=== PATIENT | male | born 1970 | race Caucasian/White ===

== ENCOUNTER → 2020-06-29 14:00 | Outpatient (BNVA) | payer BC, SELFPAY | PROVIDERS: Family Provider Family Medicine; PCP Nurse Practitioner Family; Visit Provider Family Medicine | DX: M79.641 Pain in right hand (principal); M79.642 Pain in left hand | CPT/HCPCS: 84550 ==

== ENCOUNTER → 2023-02-02 14:10 | Outpatient (BNVA) | payer BC, SELFPAY | PROVIDERS: PCP Nurse Practitioner Family; Visit Provider Nurse Practitioner Family | DX: M79.672 Pain in left foot (principal); M77.8 Other enthesopathies, not elsewhere classified | CPT/HCPCS: 73630 ==

== ENCOUNTER 2024-03-20 17:03 | Emergency (ER) | payer BC, SELFPAY ==
[2024-03-20 17:40] VITALS: BP 142/77; PULSE 67; RESP 18; TEMP 36.8; O2SAT 100; BMI 38.0
--- NOTE | 2024-03-20 17:55 | ED_ITS ---
HPI - Animal Bite General: Chief Complaint: Animal Bite Stated Complaint: Bit by a raccoon on rt hand Time Seen by Provider: 03/20/24 17:47 History of Present Illness: 53-year-old male patient comes in today with a animal bite to the right forearm. Patient has 2 puncture wounds from a raccoon. Patient appears nontoxic. Patient is concerned for rabies. Animal was a wild animal. Related Data Previous Rx's Medication Instructions Recorded ibuprofen 800 mg tablet 800 mg PO Q8H PRN pain #30 tabs 02/02/23 azithromycin 250 mg tablet See Rx Instructions PO .COMPLEX #6 01/11/24 (Zithromax Z-Ruben) tabs cefdinir 300 mg capsule 300 mg PO BID #14 caps 01/11/24 prednisone 20 mg tablet 40 mg (2 x 20 mg) PO DAILY 5 days 01/11/24 #10 tabs amoxicillin 875 mg-potassium 1 tab PO BID #14 tabs 03/20/24 clavulanate 125 mg tablet Allergies Allergy/AdvReac Type Severity Reaction Status Date / Time No Known Allergies Allergy Verified 03/20/24 17:40 Review of Systems General: Reports: 10 or more systems reviewed and unremarkable except in HPI and below Skin/Breast: Reports: other (Puncture arm) [facility] ED PFSH: Social History Smoking and tobacco/nicotine status: never used tobacco/nicotine Alcohol intake: never Substance/Drug Use: never Physical Exam Const: COMMON NORMALS: alert HENMT: COMMON NORMALS: normocephalic HEAD & SCALP: normocephalic Neck/C-Spine: COMMON NORMALS: full ROM Resp: COMMON NORMALS: normal respiratory effort and clear to auscultation bilaterally AUSCULTATION: clear to auscultation bilaterally Cardio: COMMON NORMALS: regular rhythm RHYTHM: regular rhythm Back/Pelvis: COMMON NORMALS: thoracic and lumbar spine normal to inspection Extremity: COMMON NORMALS: full ROM Neuro: SENSORIUM/ORIENTATION: Yes alert Skin: OTHER: Due to point puncture wounds to the right forearm. No significant redness or swelling noted. Course Vital Signs: Vital signs: Vital Signs Temperature 98.3 F 03/20/24 17:40 Pulse Rate 67 03/20/24 17:40 Respiratory Rate 18 03/20/24 17:40 Blood Pressure 142/77 03/20/24 17:40 Pulse Oximetry 100 03/20/24 17:40 MDM - Animal Bite Medical Decision Making 53-year-old male patient comes in today for complaints of raccoon animal bite to the right forearm. On exam patient has 2 puncture wounds and some abrasions noted to the right forearm. Differential diagnosis includes but not limited to need for prophylaxis tetanus, need for prophylaxis postexposure rabies exposure, need for prophylaxis antibiotics, animal bite, foreign body. No signs of foreign body or severe injury was noted. Reviewed exam with patient with recommendation for treatment and follow-up. Patient reported understanding agreed to plan. No radiology studies performed this visit Discharge Plan Discharge Patient Disposition: Home Clinical Impression: Animal bite of forearm Qualifiers: Encounter type: initial encounter Laterality: right Qualified Code(s): S51.851A - Open bite of right forearm, initial encounter Condition: Stable Prescriptions: New amoxicillin-pot clavulanate 875-125 mg tablet 1 tab PO BID Qty: 14 0RF No Action ibuprofen 800 mg tablet 800 mg PO Q8H PRN (Reason: pain) Qty: 30 0RF cefdinir 300 mg capsule 300 mg PO BID Qty: 14 0RF azithromycin [Zithromax Z-Ruben] 250 mg tablet See Rx Instructions PO .COMPLEX Qty: 6 0RF Rx Instructions: take 500 mg today (day 1), then 250 mg for 4 days (days 2-5) PO prednisone 20 mg tablet 40 mg PO DAILY 5 Days Qty: 10 0RF Discharge Orders: Discharge ED (Routine); Ordered 03/20/24 Ordered By: Jonn Garrison Referrals: Joy Green NP [Primary Care Provider] - Discharge Diet: Usual diet Discharge Activity: Increase activity as tolerated Patient Instructions: Animal Bite (ED) Activity Restrictions/Additional Instructions: Take antibiotic as directed. You will need to return on days 3, 7, and 14 to complete the rabies vaccine postexposure series. Drink plenty of water and medications with antibiotics. Follow-up with primary care in 2 to 3 days for recheck. Return to ED for increasing redness and swelling of the extremity, high fever, or new concerns. 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
[2024-03-20] MEDS: tetanus-dipt-pertussis 0.5 mL SDV IM (18:27)
[2024-03-20] MEDS: amoxicillin-clav 875-125 mg Tablet 1 TAB PO (18:30)
[2024-03-20] MEDS: rabies vaccine 2.5 unit SDV IM (18:31)
[2024-03-20] MEDS: rabies IG 300 unit/mL SDV 1 mL 2550 UNIT IM (18:34)
[2024-03-20 18:53] VITALS: BP 152/84; PULSE 66; O2SAT 98
== END 2024-03-20 18:54 | disposition home or self-care (01) ==
PROVIDERS: Emergency Provider Nurse Practitioner Family; PCP Nurse Practitioner Family
DX: S51.851A Open bite of right forearm, initial encounter (principal); Z29.14 Encounter for prophylactic rabies immune globulin; Z23 Encounter for immunization; W55.51XA Bitten by raccoon, initial encounter
CPT/HCPCS: 90375; 90471; 90675; 90715; 99283

== ENCOUNTER → 2024-08-10 11:00 | Outpatient (BNVA) | payer BC, SELFPAY | PROVIDERS: PCP Nurse Practitioner Family; Visit Provider Nurse Practitioner Family | DX: Z13.6 Encounter for screening for cardiovascular disorders (principal); Z13.29 Encounter for screening for other suspected endocrine disorder; Z86.39 Personal history of other endocrine, nutritional and metabolic disease | CPT/HCPCS: 80053; 80061; 83036; 84443; 85025 ==

== ENCOUNTER → 2024-09-05 15:44 | Outpatient (BNVA) | payer BC, SELFPAY | PROVIDERS: PCP Nurse Practitioner Family; Visit Provider Nurse Practitioner Family | DX: S62.662A Nondisplaced fracture of distal phalanx of right middle finger, initial encounter for closed fracture (principal); X58.XXXA Exposure to other specified factors, initial encounter | CPT/HCPCS: 73140 ==

== ENCOUNTER 2024-09-15 06:26 | Day surgery (SDC) | payer BC, SELFPAY ==
--- NOTE | 2024-09-15 06:42 | W.PM.OPSUD ---
Surgery/Procedure H&P Update DATE OF PROCEDURE: September 15, 2024 DATE H&P PERFORMED: 08/23/24 H&P UPDATE INFORMATION: I have reviewed H&P completed within last 30 days, I have examined patient prior to procedure, No changes to prior documentation, Changes to prior documentation as noted here and Risks and benefits of the procedure reviewed PLANNED PROCEDURE: Operation Date: 09/15/24 07:40 Proposed Procedures p Colonoscopy [id number] G0121, Z12.11(Not Applicable) - Gurpreet Shaver MD
[2024-09-15 06:45] VITALS: BP 129/89; PULSE 69; RESP 16; TEMP 36.4; O2SAT 96; BMI 40.6
--- NOTE | 2024-09-15 07:14 | ANES.PREANE2 ---
Pre-Anesthetic Assessment Height/Weight: Height 1.83 m Weight 136.078 kg Temp Pulse Resp BP Pulse Ox O2 Del Method 97.6 F 69 16 129/89 96 Room Air 09/15/24 06:45 09/15/24 06:45 09/15/24 06:45 09/15/24 06:45 09/15/24 06:45 09/15/24 06:45 Preop Diagnosis: screen Operation Date: 09/15/24 07:40 Proposed Procedures p Colonoscopy [id number] G0121, Z12.11(Not Applicable) - Gurpreet Shaver MD Familial anesthetic complications: denies Was Beta Kell taken within 24 hours: N/A Was Clonidine taken within 24 hours: N/A Last intake: Intake Last Liquid Date 09/14/24 Last Liquid Time 21:00 Last Solid Date 09/13/24 Last Solid Time 18:30 Social denies Exam alert, oriented x 3, clear to auscultation bilaterally and regular rate & rhythm Airway Submandibular: Other (short neck, excess tissue) Cervical ROM: Other (LROM) Mallampati: Class II Comments: Comments: Intact History/ROS No significant history except as noted Pulmonary Sleep Apnea hx walking pneumonia - resolved CV/HEM None reported None reported Hepatic None reported GI Gastroesophageal Reflux Disease and None reported Metabolic Morbid Obesity and Thyroid Disease Musc/skel R wrist ganglion cyst, fx middle finger of RH, heel spur Neuropsych Neuropathy (UE/LE) Anesthetic Plan ASA status: 3 Anesthesia: MAC Risk of > 500 ml blood loss (7ml/kg in children): No Medications/Allergies Home Medications ?Medication ?Instructions ?Recorded ?Confirmed ?Last Taken ?Type No Known Home Medications 08/23/24 09/15/24 Unknown History Allergies Allergy/AdvReac Type Severity Reaction Status Date / Time No Known Allergies Allergy Verified 09/15/24 06:45 Current Medications Generic Name Dose Route Start Last Admin Trade Name Freq PRN Reason Stop Dose Admin Sodium Chloride 1,000 mls @ 15 mls/hr 09/15/24 06:31 09/15/24 06:56 Sodium Chloride 0.9% IV 09/16/24 06:30 15 mls/hr .Q24H PRN Administration COLONOSCOPY FLUIDS PFSH Anesthesia Social History Smoking and tobacco/nicotine status: never used tobacco/nicotine Alcohol intake: never Substance/Drug Use: never
[2024-09-15 08:02] VITALS: BP 121/76; PULSE 83; RESP 12; TEMP 36.4; O2SAT 96
[2024-09-15 08:12] VITALS: BP 138/96; PULSE 76; RESP 16; O2SAT 97
--- NOTE | 2024-09-15 08:30 | ANE.PACU2 ---
Inpatient post-anesthesia follow up: Airway intact: Yes Vital signs: Temperature 97.6 F Pulse Rate 76 Respiratory Rate 16 Blood Pressure 138/96 Pulse Oximetry 97 Oxygen Delivery Me thod Room Air Oxygen Flow Rate Fraction of Inspir ed Oxygen Hydration adequate: Yes Nausea and vomiting: No Pain level: 1 Mental status: Baseline
== END 2024-09-15 08:30 | disposition home or self-care (01) ==
PROVIDERS: PCP Nurse Practitioner Family; Visit Provider Surgery
PROC: 0DJD8ZZ Inspection of Lower Intestinal Tract, Via Natural or Artificial Opening Endoscopic (ICD-10-PCS; CPT 45378; principal; 2024-09-15 07:40)
DX: Z12.11 Encounter for screening for malignant neoplasm of colon (principal); G47.30 Sleep apnea, unspecified; E66.01 Morbid (severe) obesity due to excess calories; Z68.41 Body mass index [BMI] 40.0-44.9, adult; K21.9 Gastro-esophageal reflux disease without esophagitis; E11.40 Type 2 diabetes mellitus with diabetic neuropathy, unspecified; E07.9 Disorder of thyroid, unspecified
CPT/HCPCS: 45378; J2704; J3490; J7030

== ENCOUNTER → 2024-12-06 11:07 | Outpatient (BNVA) | payer BC, SELFPAY | PROVIDERS: PCP Nurse Practitioner Family; Visit Provider Nurse Practitioner Family | DX: R73.09 Other abnormal glucose (principal) | CPT/HCPCS: 83036 ==